=== PATIENT | male | born 1980 | race Caucasian/White ===

== ENCOUNTER 2019-05-11 10:25 | Day surgery (SDC) | payer BC ==
[~2019-05-11] VITALS: Ht 182.9 cm; Wt 110.2 kg
[2019-05-11] VITALS (15 sets, daily range): BP systolic 111–157; BP diastolic 64–90; PULSE 76–92; TEMP 96.9–98.7
[2019-05-11] MEDS ORDERED: PRIL40 PO (11:28)
[2019-05-11] MEDS ORDERED: ABSORICA20 MG PO (11:34)
[2019-05-11] MEDS ORDERED: ADVIL200 MG PO (11:35)
--- NOTE | 2019-05-11 11:38 | NUR ---
TO RM AT 1050- CALL LIGHT IN REACH AND SON AT BEDSIDE.
[2019-05-11] MEDS ORDERED: Cleocin PO (16:19)
[2019-05-11] MEDS ORDERED: MOTRIN 600600 MG/TAB PO (16:19)
[2019-05-11] MEDS ORDERED: PERCOCET 325 MG1 TA2 PO (16:19)
[2019-05-11] MEDS ORDERED: COLACE 100100 MG/CAP PO (16:19)
--- NOTE | 2019-05-11 16:35 | NUR ---
TO RM 5 PER CART FROM PACU. ALERT ORIENTED X3, TALKING TO STAFF AND . C/O ROOM BEING "HOT". WOUND VAC IN PLACE COOL WASH CLOTHE TO FOREHEAD. FAN PLACED IN ROOM ON PATIENT. C/O INTERMITTENT BURNING IN THE GROIN AREA. EATING ICE CHIPS.
--- NOTE | 2019-05-11 16:45 | NUR ---
C/O SLIGHT NAUSEA, BUT STATED THE FAN HAS HELPED A LOT. RECEIVED ICE WATER AND JELLO. CONTINUES TO C/O THE INTERMITTENT BURNING. CONTINUES TO BE DIAPHORETIC. ATTEMPTED TO REPOSITION FOR COMFORT.
--- NOTE | 2019-05-11 17:00 | NUR ---
ATE ONLY 2-3 BITES OF JELLO AND STATED HE COULDN'T EAT ANY MORE. PATIENT STATED HE THOUGHT IT WOULD BE BEST FOR HIM TO STAY THE NIGHT. [facility] CALLED FOR ROOM ON THE FLOOR.
[2019-05-11 17:09] LABS: HEMOGLOBIN 11.9 g/dl (13.5-18.0); MEAN CELL VOLUME 87 fl (80.0-100.0); MEAN CORPUSCULAR HEMOGLOBIN 28 pg (27.0-31.0); MEAN CORPUSCULAR HGB CONC 32 g/dl (33.0-37.0); MEAN PLATELET VOLUME 8.8 fl (7.4-10.4); PLATELET COUNT 445 K/mm3 (130-400); RED BLOOD COUNT 4.25 M/mm3 (4.20-5.60); REDCELL DISTRIBUTION WIDTH-CV 13.2 % (11.5-14.5)
--- NOTE | 2019-05-11 17:15 | NUR ---
TRANSFERED PER CART TO 322-2-FLOOR STAFF AT BEDSIDE TO ASSIST WITH TRNASFER PATIENT ABLE TO STAND VERY SLOWLY AND TAKE A STEP OVER TO BED. ONCE IN BED IN C/O EXTREME BURNING AND TEETH STARTED TO CHATTER. AFTER A FEW MINUTES THE TEETH STOPPED CHATTERING. AND SON AT BEDSIDE.
[2019-05-11 17:17] LABS: CREATININE, serum 0.94 (0.66-1.25); POTASSIUM 5.5 mmol/L (3.4-5.0)
--- NOTE | 2019-05-11 17:39 | NUR ---
DR SAMUEL CALLED AND UPDATED PATIENT TRANSFERED TO 322.2
[2019-05-11 18:01] LABS: LYMPHOCYTE 1 % (20.0-51.0); NEUTROPHILS 98 % (42.0-75.2); PLATELET ESTIMATE INCREASED (NORMAL)
--- NOTE | 2019-05-11 21:00 | NUR ---
PT RESTING IN BED A+OX4. REPORTS MINIMAL PAIN UNTIL MOVEMENT. DENIED NEED FOR PAIN MEDS AT THIS TIME. LEFT WOUND VAC WORKING PROPERLY. RIGHT SIDE DRESSING DCI. ASSISTED WITH URINAL- YELLOW CLEAR URINE NOTED. LEFT FA IV FLUSHES WLL, NO REDNESS NO SWELLING. SCDs ON BILAT LEGS. NO NEEDS AT THIS TIME. VADIM LIGHT IN REACH
[2019-05-12 04:16] VITALS: BP 120/64; PULSE 70; TEMP 98
--- NOTE | 2019-05-12 05:37 | NUR ---
WOUND VAC IS LEAKING BLOOD UP PT GROIN- CHARGE NURSE ASSISTED TO SEAL DRESSING. WILL CONTINUE TO MONITOR. PAIN 5/10- PRN PAIN MEDS GIVEN
--- NOTE | 2019-05-12 05:38 | NUR ---
PT HAD AN UNEVENTFUL NIGHT. MODERATE PAIN- RELIEVED WITH 1 PAIN PILL. WOUND VAC LEAKING BLOOD- SEALED DRESSING. RIGHT DRESSING DCI. NO SOA. LUNGS CLEAR. BOWELS HEARD THROUGOUT. HEART RRR. NO NEEDS AT THIS TIME. CALL LIGHT IN REACH. MONITORING WOUND VAC.
--- NOTE | 2019-05-12 07:09 | NUR ---
REPORT GIVEN TO MILENA CHAMBERS
[2019-05-12 07:28] LABS: BASO # 0.1 (0.0-0.2); BASO % 0.5 % (0.0-2.0); EOS # 0.1 (0.0-0.7); EOS % 0.8 % (0-4.0); GRAN # 9.3 (1.4-6.5); GRAN % 65.8 % (42.2-75.2); LYMPH # 3.1 (1.2-3.4); MEAN CELL VOLUME 85 fl (80.0-100.0); MEAN CORPUSCULAR HEMOGLOBIN 28 pg (27.0-31.0); MEAN CORPUSCULAR HGB CONC 33 g/dl (33.0-37.0); MONO # 1.4 (0.1-0.6); MONO % 9.6 % (1.7-9.3); PLATELET COUNT 438 K/mm3 (130-400); RED BLOOD COUNT 3.91 M/mm3 (4.20-5.60); REDCELL DISTRIBUTION WIDTH-CV 13.4 % (11.5-14.5)
[2019-05-12 07:30] LABS: HEMATOCRIT 33.4 % (42.0-52.0)
[2019-05-12 07:42] LABS: CALCIUM 8.8 mg/dL (8.4-10.2); CREATININE, serum 0.7 (0.66-1.25); POTASSIUM 4.2 mmol/L (3.4-5.0)
[2019-05-12 07:59] VITALS: BP 135/74; PULSE 81; TEMP 98
--- NOTE | 2019-05-12 11:21 | NUR ---
REPORT RECIEVED FROM BRIDGET ABBOTT. PATIENT ALERT AND ORIENTED X4. 2 PERCOCETS GIVEN FOR MODERATE PAIN. SCD'S REMOVED. WOUND VAC DRAINING PROPERLY, NO LEAKAGE NOTED. SIGNIFICANT IRRITATION AND SLIGHT PUSTUAL DRAINAGE NOTED IN THE R ARMPIT. WILL CONTINUE TO MONITOR PAIN.
[2019-05-12 13:12] VITALS: BP 155/81; PULSE 88; TEMP 98
[2019-05-12 13:32] LABS: COLLECTION METHOD CLEAN CATCH
[2019-05-12 13:44] LABS: PH 5 (5-8); SQUAMOUS EPITHELIAL None Seen /hpf; URINE APPEARANCE Clear; URINE BACTERIA None Seen /hpf; URINE BILIRUBIN Negative (NEGATIVE); URINE BLOOD 1+ (NEGATIVE); URINE COLOR Yellow; URINE GLUCOSE Negative (NEGATIVE); URINE KETONE Negative (NEGATIVE); URINE LEUKOCYTE ESTERASE Negative (NEGATIVE); URINE NITRATE Negative (NEGATIVE); URINE PROTEIN(semi-quant) Negative (NEGATIVE); URINE RBC 0-2 /hpf; URINE UROBILINOGEN Negative (NEGATIVE); URINE WBC 0-2 /hpf
[2019-05-12] MEDS ORDERED: NEURONTIN100 MG/CAP PO (15:18)
[2019-05-12 15:32] VITALS: BP 131/79; PULSE 77; TEMP 98.1
[2019-05-12 20:01] VITALS: BP 142/76; PULSE 95; TEMP 99.1
--- NOTE | 2019-05-12 20:32 | NUR ---
PT IN BED WITH HOB AT 30 DEGREE ANGLE. PT A/O X4, AND C/O PAIN IN GROIN AREA RATED AT A 10/10 THAT FEELS LIKE IT IS HOT AND BURNING. PT GIVEN PERCOCETS FOR PAIN. NO OTHER NEEDS CALL LIGHT WITHIN REACH.
[2019-05-13] VITALS (7 sets, daily range): BP systolic 114–141; BP diastolic 63–86; PULSE 82–91; TEMP 98.1–99.1
--- NOTE | 2019-05-13 05:32 | NUR ---
ABOUT 0215 PT WAS ASSISTED OUT OF BED BY NURSE CLINICAL. PT HAD AN EPISODE WERE HE HAD BLOOD RUNNING DOWN HIS LEG. ASSESSED PT AND PT WAS ACTIVELY BLEEDING FROM RECTAL AREA. PACKED AREA WITH GAUZE. ALSO, PT HAD SANGUINE DRAINAGE FROM HIS ARM PIT. APPLIED A ABD PAD TO STOP DRAINAGE. ALSO LEFT GROIN SITE HAD BLOOD UNDER TEGADERM, APPLIED GAUZE TO AREA. RECHECKED PT ABOUT AN HOUR LATER AND THERE WAS NO MORE DRAINAGE NOTED. PT WAS GIVEN PERCOCET AT 0227 FOR PAIN. PT WAS RECHECK AN HOUR LATER AND DRAINAGED WAS NOT NOTED, ALSO CHECKED ON PT AT 0500 AND WAS STILL DOING FINE. PT ADVISED THAT HE WAS SLEEPING AND THAT HIS PAIN WAS UNDER CONTROL AT THIS TIME. PT GOING TO TRY AND GO BACK TO SLEEP. NO NEEDS AT THIS TIME, CALL LIGHT WITHIN REACH.
--- NOTE | 2019-05-13 14:00 | NUR ---
PATIENT GIVEN 2 PERCOCETS PRIOR TO DRESSING CHANGE. L GROIN WOUND COVERED WITH GUAZE AND TEGADERM AND AN AIRSTRIP. PATIENT AMBULATED TO BATHROOM WHERE HE HAD AN EPISODE DURING AMBULATION. HEAVY AND ACTIVE BLEEDING FROM INNER BUTTOCK. PATIENT IN SEVERE PAIN DESCRIBED 'STABBING'. PATIENT RETURNED TO BED. WOUND VAC DRESSING WAS REMOVED ON R GROIN. PATIENT RECIEVED IV DILAUDID 0.5 MG. WOUND CLEANED WITH WARM BATH WIPES. BLOOD CLOTS AND ACTIVE BLOODY DRAINAGE NOTED. TRISH ABBOTT ATTEMPTED TO REAPPLY WOUND VAC DRESSING. AIR LEAK NOTED. WILL REATTEMPT AT A LATER TIME PENDING HELP FROM ACID PAINTER AND DILAUDID 1MG TO SET IN. PATIENT IN BED EATING LUNCH FAMILY AT BEDSIDE.
--- NOTE | 2019-05-13 17:30 | NUR ---
PATIENT GIVEN 1 MG OF DILAUDID PRIOR TO SECOND ATTEMPT AT CHANGING WOUND VAC DRESSING. WOUND VAC DRESSING REMOVED. REAPPLIED TO THE L SIDE OF HIS GROIN WITH ASSISTANCE FROM 3 OTHER NURSES. COMPLAINS OF MODERATE PAIN DURING AND AFTER PROCEDURE TO THE AREA BEHIND/UNDERNEATH SCROTUM. SCROTUM APPEARS SIGNIFICANTLY MORE SWOLLEN THAN YESTERDAY. ABD PAD APPLIED TO BUTTOCK. ABD PAD APPLIED TO ARMPIT. AIRSTRIP DRESSING STILL ON R SIDE GROIN WOUND. HYGIENE DONE WITH ASSISTANCE IN SETUP. PATIENT REQUESTS PAIN MEDICATION. 2 PERCOCETS GIVEN. REPORTS NO FURTHER NEEDS AT THIS TIME. WILL CONTINUE TO MONITOR.
--- NOTE | 2019-05-13 18:19 | NUR ---
PATIENT IN BED HOB ELEVATED. ALERT AND ORIENTED X4. STATES HE HAS SOME PAIN BUT DENIES THE NEED FOR ANYMORE PAIN MEDICINE. PATIENT TRANSFERRING TO ROOM 353. PATIENT AMBULATED DOWN [place] FROM ROOM 332 TO ROOM 353 WITH A STANDBY ASSIST. PATIENT IN BED. OXYGEN ON VIA NASAL CANNULA. NS RUNNING AT 125. REQUESTS WATER. NO FURTHER NEEDS AT THIS TIME.
--- NOTE | 2019-05-13 22:56 | NUR ---
DRESSINGS TO GROIN BILATERALLY INTACT. WOUND VAC DRESSING INTACT. PERCOCET FOR PAIN.
[2019-05-14 04:02] VITALS: BP 130/75; PULSE 87; TEMP 98.7
[2019-05-14 08:26] VITALS: BP 120/73; PULSE 89; TEMP 98
--- NOTE | 2019-05-14 09:15 | NUR ---
IN BED ASLEEP. LAYING FLAT. COMPLAINING OF BACK SPASMS. MORNING MEDS PASSED. DENIES NEED FOR PAIN MEDICATION AT THIS TIME. WILL CONTINUE TO MONITOR. DRESSINGS INTACT.
[2019-05-14 12:27] VITALS: BP 138/69; PULSE 92; TEMP 98.2
--- NOTE | 2019-05-14 13:24 | NUR ---
Plan: Plans to return home with Jeni in [place]. Assess: Patient reports that he resides in with his and she is his care support. Patient reports that she will transport him home. Pt reports that use of [facility] for RX. Patient denies having any DME or wanting any services for [facility]. Patient indicated that his spouse will transport home. Patient reports that he is not sure what to expect and is not opposed to [facility]. Action: Will waiting for PT/OT recommendations and reassess services.
--- NOTE | 2019-05-14 14:25 | NUR ---
patient discharging to home with and mother. IV discontinued, catheter intact, bandaid applied. patient assisted in changing clothes and transfer to wheelchair. patients wound vac dressing reinforced with 2 tegaderm. patient transported via wheelchair to private vehicle. discharged at 1425.
== END 2019-05-14 14:25 | disposition home or self-care (01) ==
LOC: SDCO 10:25 → SURG 17:40 → SDCO 05-13 17:40 → SURG 05-14 01:14 → SDCO 05-14 14:25 → SURG 05-14 14:25
PROVIDERS: Surgery
DX: L73.2 Hidradenitis suppurativa (principal); K21.9 Gastro-esophageal reflux disease without esophagitis; E11.9 Type 2 diabetes mellitus without complications; Z79.52 Long term (current) use of systemic steroids; F17.210 Nicotine dependence, cigarettes, uncomplicated; Z88.0 Allergy status to penicillin
CPT/HCPCS: OP; J1100; J1170; J1885; J2405; J2704; J3010; J7120

== ENCOUNTER → 2019-05-18 | Outpatient (CLI) | payer BC ==
[~2019-05-18] MED LIST: ABSORICA20 MG PO; ADVIL200 MG PO; COLACE 100100 MG/CAP PO; Cleocin PO; MOTRIN 600600 MG/TAB PO; NEURONTIN100 MG/CAP PO; PERCOCET 325 MG1 TA2 PO; PRIL40 PO
== END ==
LOC: ZCOL.LAB 17:56
DX: L73.2 Hidradenitis suppurativa (principal)

== ENCOUNTER → 2020-04-30 | Outpatient (CLI) | payer BC | LOC: ZCOL.LAB 15:32 | DX: L73.2 Hidradenitis suppurativa (principal) ==

== ENCOUNTER → 2020-12-30 | Outpatient (CLI) | payer OTHER | LOC: ZCOL.LAB 16:05 | DX: L02.415 Cutaneous abscess of right lower limb (principal) ==

== ENCOUNTER → 2021-03-13 | Outpatient (CLI) | payer OTHER | LOC: ZCOL.LAB 16:22 | DX: L73.2 Hidradenitis suppurativa (principal) ==